=== PATIENT | male | born 2005 | race American Indian/Alaskan Native ===

== ENCOUNTER 2023-06-19 09:58 | Emergency (ER) | payer OTHER, SELFPAY ==
[2023-06-19 09:59] VITALS: BP 129/85; PULSE 77; RESP 16; TEMP 36.2; O2SAT 97; BMI 26.6
[2023-06-19 10:48] LABS: Absolute Lymphocyte Count 1.03 X10^3/uL (0.83-4.51); Absolute Neutrophil Count 5.5 X10^3/uL (2.0-7.7); Basophil# 0.05 X10^3/uL; Basophil% 0.7 % (0-1); Eosinophil# 0.03 X10^3/uL; Eosinophils% 0.4 % (0-5); Hemoglobin 13.7 g/dL (13.0-16.5); Lymphocyte # 1.03 X10^3/ul (0.83-4.51); Mean Corp Hgb Conc 32.6 g/dL (32-36); Mean Corpuscular Volume 85.7 fL (80-94); Mean Platelet Vol. 8.8 fl (6.2-12.0); Monocyte# 0.68 X10^3/uL; Monocyte% 9.3 % (0-10); NRBC Flagged by Analyzer 0 % (0-5); Neutrophil # 5.54 X10^3/uL (2.7-7.7); Neutrophil % 75.5 % (47-70); Platelet Count 320 K/mm3 (150-450); RBC Distribution Width CV 13.6 % (11.6-14.6); RBC Distribution Width SD 42.5 fl (35.1-43.9); White Blood Count 7.3 K/mm3 (4.4-11.0)
[2023-06-19 11:04] LABS: Anion Gap 5 (5-15); BUN 14 mg/dL (7-18); BUN/Creat Ratio 16.8 RATIO (10-20); Calcium,Total 9.5 mg/dL (8.5-10.1); Chloride 108 mmol/L (98-107); Creatinine, Serum 0.83 mg/dL (0.70-1.30); EST Glomerular Filtration Rate 125 mL/min (>60); Est Glom Filt Rate - Afr Amer 152 mL/min (>60); Estimated Creatinine Clearance 152.46 ml/min; Glucose 116 mg/dL (74-106); Potassium 3.4 mmol/L (3.5-5.1); Sodium Level 138 mmol/L (136-145)
[2023-06-19 11:15] LABS: Amphetamine Urine VISTA NEGATIVE (<1000 ng/mL); Barbiturate Urine VISTA NEGATIVE (< 200 ng/mL); Benzodiazepine Urine VISTA NEGATIVE (< 200 ng/mL); Cocaine Urine VISTA NEGATIVE (< 300 ng/mL); Ecstacy Urine VISTA NEGATIVE (< 500 ng/mL); Methadone Urine VISTA NEGATIVE (< 300 ng/mL); PCP Urine VISTA NEGATIVE (< 25 ng/mL); THC Urine VISTA NEGATIVE (< 50 ng/mL); Vista UDS pH Range 7
[2023-06-19 11:29] LABS: Alcohol, Blood (Medical)-Serum < 3.0 mg/dL
--- NOTE | 2023-06-19 11:41 | EX.ED.VIS.PS ---
HPI HPI - Psych History of Present Illness Chief Complaint: Suicidal Detail of Chief Complaint: Depression with suicidal thoughts. Informant: patient Onset/Context/Timing Onset: Weeks Context: Gradual Onset Timing: Continuous Current Severity: Moderate Maximum Severity: Moderate Associated Symptoms Associated Symptoms - Psych: Positive for Depressed and Suicidal Thoughts; Negative for Pressured Speech, Threatening, Confusion, Paranoia, Visual Hallucinations or Auditory Hallucinations Specific plan (suicidal thought): No specific plan at this time that I am aware of nor that he admits to. Narrative Narrative: 17-year-old male [employer]. Patient is from [facility] he has no family members anywhere near this area. States been increasingly more depressed over the last week. He denies any attempted suicide but has had thoughts. He has [facility]. They have having talking to counselors via phone. He states is only feel like he is getting worse. 3 years ago he did attempt an overdose at home. But he had no medical evaluation at that time. He denies any recent attempts. He is currently on Prozac which she started 2 weeks ago prior to that he was on Zoloft which has been stopped. Prior similar symptoms: Yes Recent Illness/Hospitalization: No PFSH PFSH Medical History Anxiety Borderline personality disorder Depression Migraines Home Medications fluoxetine 20 mg capsule (Prozac) 20 mg PO DAILY 06/19/23 [History Last Taken Unknown] lamotrigine 25 mg tablet (Lamictal) 25 mg PO DAILY 06/19/23 [History Last Taken Unknown] propranolol PO DAILY 06/19/23 [History Last Taken Unknown] Allergy/AdvReac Type Severity Reaction Status Date / Time No Known Allergies Allergy Verified 06/19/23 11:06 Social History Smoking Status: Unknown if ever smoked ROS ROS ED ROS Narrative Denies recent illness. Review of Systems ROS Unobtainable: Denies due to encephalopathy Constitutional Constitutional ED: Denies chills or fever(s) Eyes Eyes: Denies blurry vision ENT ENT ED: Denies ear pain Cardiovascular Cardiovascular: Denies chest pain Respiratory/Chest Respiratory/Chest: Denies cough or dyspnea Gastrointestinal Gastrointestinal: Denies abdominal pain Genitourinary Genitourinary ED: Denies dysuria Musculoskeletal Musculoskeletal: Denies arthralgias Integumentary Denies abscess Psychiatric Psychiatric: Reports anxiety, depression and suicidal thoughts Endocrine Endocrinology: Denies polydipsia Hematologic/Lymphatic Hematologic/Lymphatic: Denies easy bleeding Allergic/Immunologic Allergic/Immunologic ED: Denies mouth swelling or tongue swelling EXAM Physical Exam Narrative Exam Narrative: Well-appearing 17-year-old male. Vital signs stable afebrile. HEENT exam normal. No trauma. Neck nontender no trauma. Lungs clear to auscultation bilaterally. Heart regular rhythm rate about 75 no murmur. Chest wall nontender. Abdomen soft nontender. Moving all 4 extremities. Calves are nontender that edema or cords. There is no lacerations to his upper or lower extremities or any trauma. Neurologically is awake and alert. Answering questions following commands. He is calm and collected. He is making good eye contact. No focal motor deficits. No smell of alcohol. No signs of toxidrome. Const Vital Signs: 06/19/23 09:59 06/19/23 12:54 Temperature 97.1 F L Temperature Source Temporal Pulse Rate 77 79 Respiratory Rate 16 18 Blood Pressure 129/85 H 155/78 H Blood Pressure Mean 99 103 Pulse Ox 97 97 Oxygen Delivery Method Room Air Room Air Positive well nourished and well developed; Negative for cachectic, contractures or unkempt General Appearance ED: well developed and NAD; Negative for unkempt, cachectic, contractures or pallor Nutritional Appearance: Negative for cachectic HEENT Reports moist mucous membranes normocephalic and atraumatic; Negative for trauma or tenderness Eyes PERRL and EOMs intact bilaterally General Eye ED: Negative for pale conjunctiva or scleral icterus Neck no lymphadenopathy, supple and no JVD General: Negative for tenderness Resp normal respiratory effort and clear to auscultation bilaterally Effort and Inspection: Negative for retractions Auscultation: Negative for rales, rhonchi or wheezes Cardio S1 normal heart sound, S2 normal heart sound and no murmurs Rate: regular rate Rhythm: regular rhythm GI non-tender, non-distended and no masses Inspection: Negative for abdominal distention Auscultation: normoactive bowel sounds Palpation: soft; Negative for tender or guarding Back/Spine no CVA tenderness General Back: Negative for CVA tenderness Cervical Spine: Negative for cervical spine tenderness Thoracic Spine / Upper Back: Negative for thoracic spinal tenderness Lumbar Spine / Lower Back: Negative for lumbar spinal tenderness Coccyx: Negative for other Extremity normal to inspection General Extremety ED: Negative for edema or tenderness General Extremity: Negative for edema Neuro oriented x3, CN's II-XII intact bilaterally and no sensory deficits noted Sensorium / Orientation: alert, oriented to person, oriented to place and oriented to time; Negative for orientation impaired, confused, lethargic or stuporous Motor Exam: strength 5/5 throughout Psych cooperative, speech normal, activity/motor behavior normal, denies hallucinations and denies homicidal ideation; Negative for denies suicidal ideation Psych Narrative: 17-year-old emotionally depressed male. However he does make eye contact. He does seem to be forthcoming with information. Appearance: grossly normal; Negative for unkempt Attitude: calm, engaged, withdrawn, No uncooperative, No evasive, No aggressive and No hostile Activity / Motor Behavior: appropriate eye contact Speech: normal speech Mood & Affect: depressed Thought Process: normal thought process Thought Content: suicidality Attention / Concentration: attention grossly intact Memory / Cognition: memory grossly intact Insight: insight good Judgement: judgement good Skin General Skin Exam: Negative for jaundice or pallor Lesions: no lesions Rashes: no rashes Trauma: Negative for abrasion Wounds: Negative for amputation or wounds noted MDM MDM MDM Narrative Medical decision making narrative: 17-year-old [facility] with depression and suicidal thoughts. He is medically cleared. His exam is benign. His labs are unremarkable. He will be a crisis evaluation to determine if he needs to go to a psychiatric facility or if he can be safety plan back to the [facility]. Crisis evaluated the patient feels that he needs psychiatric admission is working on that. History & Record Review Discussion w/independent historian: Patient Lab Data Attestation: I reviewed the patient's lab results. Lab results narrative: CBC normal. Chemistries normal. Glucose 116. Tox screen negative. Alcohol negative. Labs: Laboratory Results - last 24 hr 06/19/23 10:37 WBC 7.3 RBC 4.90 Hgb 13.7 Hct 42.0 MCV 85.7 MCH 28.0 MCHC 32.6 RDW Std Deviation 42.5 RDW Coeff of Radha 13.6 Plt Count 320 MPV 8.8 Immature Gran % (Auto) 0.100 Neut % (Auto) 75.5 H Lymph % (Auto) 14.0 L [place] % (Auto) 9.3 Eos % (Auto) 0.4 Baso % (Auto) 0.7 Absolute Neuts (auto) 5.5 Absolute Lymphs (auto) 1.03 Nucleated RBC % 0 Sodium 138 Potassium 3.4 L Chloride 108 H Carbon Dioxide 25.0 Anion Gap 5 BUN 14 Creatinine 0.83 Estim Creat Clear Calc 152.46 Est GFR (MDRD) Af Amer 152 Est GFR (MDRD) Non-Af 125 BUN/Creatinine Ratio 16.8 Glucose 116 H Calcium 9.5 Urine Opiates Screen NEGATIVE Urine Methadone Screen NEGATIVE Ur Barbiturates Screen NEGATIVE Ur Phencyclidine Scrn NEGATIVE Ur Amphetamines Screen NEGATIVE MDMA (Ecstasy) Screen NEGATIVE U Benzodiazepines Scrn NEGATIVE Urine Cocaine Screen NEGATIVE U Cannabinoids Screen NEGATIVE Ur Drug Screen Comment Ethyl Alcohol < 3.0 Rhythm Strip Rhythm Strip: Sinus Rhythm Rate: 67 Ectopy: None EKG Initial EKG: Attestation: I personally reviewed and interpreted this EKG as follows: Interpretation: Sinus Rhythm and No Acute Injury Pattern Comments: Normal sinus rhythm rate of 67. Discharge Plan Triage Chief Complaint: Suicidal ED Provider: Rikki Rivera Dx/Rx/DC Orders Clinical Impression: Suicidal thoughts, Depression Prescriptions: No Action fluoxetine [Prozac] 20 mg capsule 20 mg PO DAILY propranolol PO DAILY lamotrigine [Lamictal] 25 mg tablet 25 mg PO DAILY Primary Care Provider: Care Physician,No Primary Referrals: Care Physician,No Primary [Primary Care Provider] - Disposition Disposition: Psychiatric Hospital or Unit
--- NOTE | 2023-06-19 12:45 | EKG12_ITS ---
Test Reason : Blood Pressure : / mmHG Vent. Rate : 067 BPM Atrial Rate : 067 BPM P-R Int : 162 ms QRS Dur : 090 ms QT Int : 380 ms P-R-T Axes : 064 062 040 degrees QTc Int : 401 ms Normal sinus rhythm Normal ECG Confirmed by ADELAIDE SANDOVAL, RICK ([id number]), tape editor KARI SANDERS ([id number]) on 06/22/2023 9:36:03 AM Referred By: Confirmed By:RICK BRYSON MD
[2023-06-19 12:54] VITALS: BP 155/78; PULSE 79; RESP 18; O2SAT 97
--- NOTE | 2023-06-19 17:20 | ED.RN ---
[facility] CALLED TO DECLINE PTS REFERRAL DUE TO LACKING ACTIVE INSURANCE.
[2023-06-19 18:00] VITALS: BP 122/78; PULSE 72; RESP 16; O2SAT 100
--- NOTE | 2023-06-19 18:04 | ED.RN ---
[facility]IN [facility] CALLED, STATED PT HAS BEEN REFERRED TO [facility]. PT WAS DECLINED FROM [facility] DUE TO INACTIVE INSURANCE. [facility] IS AWARE OF INSURANCE ISSUE.
--- NOTE | 2023-06-19 18:12 | ED.RN ---
[facility] CALLED TO DECLINE PT DUE TO INACTIVE INSURANCE.
--- NOTE | 2023-06-19 18:47 | ED.RN ---
PER CRISIS, PT INSURANCE INFORMATION HAS BEEN OBTAINED FROM [facility]. REPORTS THAT THE FACILITIES WHICH THE PATIENT HAS BEEN REFERRED TO WILL BE CONTACTED WITH UPDATED INFORMATION FOR POTENTIAL PLACEMENT.
[2023-06-19] MEDS: FLUoxetine 20 MG Capsule PO (20:39)
[2023-06-19 21:40] VITALS: BP 126/77; PULSE 89; RESP 16; TEMP 36.7; O2SAT 97
[2023-06-20 04:00] VITALS: PULSE 76; RESP 16; O2SAT 97
[2023-06-20 05:55] VITALS: BP 118/75; PULSE 65; RESP 16; TEMP 36.2; O2SAT 98
[2023-06-20 06:55] LABS: AST(SGOT) 15 U/L (15-37); Alanine Aminotransfer ALT/SGPT 19 U/L (16-61); Albumin, Serum 4.3 g/dL (3.2-5.0); Alkaline Phosphatase 71 U/L (45-117); Bilirubin, Direct 0.25 mg/dL (0.00-0.30); Globulin 3.9 g/dL (2.2-4.2); Protein, Total 8.2 g/dL (6.4-8.2)
[2023-06-20 09:34] VITALS: BP 124/66; PULSE 72; RESP 15; O2SAT 99
[2023-06-20] MEDS: lamoTRIgine 25 MG Tablet PO (16:56)
[2023-06-20 17:00] VITALS: BP 120/74; PULSE 76; RESP 12; O2SAT 99
[2023-06-20] MEDS: FLUoxetine 20 MG Capsule PO (21:31)
[2023-06-20] MEDS: Propranolol 10 MG Tablet 20 MG PO (21:31)
[2023-06-20 21:35] VITALS: BP 130/88; PULSE 88; RESP 18; O2SAT 97
[2023-06-21 01:00] VITALS: BP 129/84; PULSE 72; RESP 14; TEMP 36.7; O2SAT 100
[2023-06-21 05:23] VITALS: RESP 15
--- NOTE | 2023-06-21 05:30 | ED.RN ---
Addendum entered by Carol High 06/22/23 04:00: Insurance is not able to be reran until Thursday. Original Note: Per Amy at the counseling center, insurance is reporting ineligible. [facility] is reporting pt does have insurance. Per Amy pt insurance needs contacted/reran or pt will need to go to [facility]. [facility] placement would be at least after Thursday.
[2023-06-21] MEDS: Propranolol 10 MG Tablet 20 MG PO (12:22)
[2023-06-21] MEDS: lamoTRIgine 25 MG Tablet PO (12:22)
[2023-06-21 13:00] VITALS: BP 132/76; PULSE 89; RESP 16; O2SAT 99
[2023-06-21 17:00] VITALS: BP 124/76; PULSE 89; RESP 16; O2SAT 99
--- NOTE | 2023-06-21 19:38 | ED.RN ---
Seda at [facility] requested EKG, COVID, and lab results. Faxed over to # [phone].
[2023-06-21 19:42] VITALS: BP 120/68; PULSE 82; RESP 16; TEMP 36.3; O2SAT 96
[2023-06-21] MEDS: FLUoxetine 20 MG Capsule PO (20:47)
--- NOTE | 2023-06-21 21:05 | ED.RN ---
Sitter remains at the bedside,pt cooperative.
[2023-06-21 23:08] VITALS: RESP 18
[2023-06-22 03:26] VITALS: BP 118/60; PULSE 72; RESP 18
[2023-06-22 08:17] VITALS: RESP 16
--- NOTE | 2023-06-22 09:05 | RAD_ITS ---
STUDY: X-RAY CHEST REASON FOR EXAM: Male, 17 years old. Cough TECHNIQUE: Single AP portable view of the chest. COMPARISON: None. FINDINGS: The lungs are clear and expanded. There is no demonstrated pleural abnormality. Normal size heart. Normal mediastinum and joann. Normal visualized pulmonary arteries. Normal visualized aortic arch and descending thoracic aorta. Normal visualized thoracic spine. Normal visualized ribs, clavicles, and shoulders. There is no demonstrated abnormality of the visualized soft tissue structures of the upper abdomen. RAD/Chest 1 View (Portable) IMPRESSION: Normal x-ray examination of the chest. Electronically Signed: Raúl Cavanaugh MD at 9:38 EST ,
--- NOTE | 2023-06-22 09:47 | NURSING ---
FAXED RAD RESULTS TO [facility]
[2023-06-22 10:09] VITALS: BP 117/75; PULSE 87; RESP 16; O2SAT 100
--- NOTE | 2023-06-22 10:16 | ED.RN ---
THIS RN CONTACTED CRISIS TO FOLLOW UP WITH PATIENT PLAN OF CARE. THIS RN REQUESTING UPDATED PLAN OF CARE NOTES FROM CRISIS AND TIME FOR NEXT RE-ASSESSMENT. PER SE FROM CRISIS SHE WILL RETURN PHONE CALL SOON SHE NEEDS TO REVIEW THE PREVIOUS NOTES.
--- NOTE | 2023-06-22 11:17 | ED.RN ---
THIS RN CONTACTED [facility]IS[facility] TO REPORT THAT THE FAX WITH PT ASSESSMENT UPDATE INFORMATION HAS NOT YET BEEN RECEIVED. PER CRISIS THEY ARE EXPERIENCING TECHNICAL DIFFICULTIES WITH THE COMPUTER SYSTEM AND THAT SHE IS TRYING AGAIN TO FAX THE INFORMATION. REPORTS THAT SE WILL BE UP TO EVALUATE THE PATIENT SHORTLY.
--- NOTE | 2023-06-22 11:27 | CM.ED ---
Social Work SW received call from [facility] [employer] [employer] regarding patient's insurance. COW reports patient does have [employer] [place] insurance and is eligible/active. JAMEY questioned patient status and insurance concerns. NAVEED notified them that SW has not been involved in this process and that crisis is handling patient placement. [facility] reports they have placed patients with this insurance in the past. SW informed crisis would be notified and SW will look into insurance concerns. JAMEY provided Dianne Samuel as contact [phone] for assistance. NAVEED spoke with ED registration who was unable to verify insurance online but insurance company was called and confirmed patient has [place] [employer] student insurance. Insurance could not provide a print out of coverage/confirmation. However, insurance can be confirmed through calling company at [phone]. NAVEED notified Kimberli from crisis of this number/confirmation of insurance received. Georgiana Vega CERTIFIED WELDER, HISTOPATHOLOGY TECHNICIAN
[2023-06-22] MEDS: lamoTRIgine 25 MG Tablet PO (11:28)
[2023-06-22] MEDS: Propranolol 10 MG Tablet 20 MG PO (11:28)
--- NOTE | 2023-06-22 12:06 | NURSING ---
CRISIS IN ROOM
--- NOTE | 2023-06-22 12:47 | ED.RN ---
JENNY BALES BILINGUAL OPERATOR PT IS REFERRED TO [facility]. REPORTS HIS INSURANCE HAS BEEN VERIFIED AND CORRECTED.
--- NOTE | 2023-06-22 14:50 | NURSING ---
[facility] N TO N [phone]
--- NOTE | 2023-06-22 15:03 | NURSING ---
CALLED [facility], ETA IS 2 TO 3 HRS
--- NOTE | 2023-06-22 15:08 | ED.RN ---
THIS RN CALLED REPORT [facility]
[2023-06-22 17:11] VITALS: BP 127/89; PULSE 75; RESP 16; TEMP 36.9; O2SAT 98
== END 2023-06-22 17:47 ==
PROVIDERS: Emergency Medicine; Emergency Provider Emergency Medicine; Visit Provider Emergency Medicine
DX: F32.A Depression, unspecified (principal); R45.851 Suicidal ideations; Z79.899 Other long term (current) drug therapy
CPT/HCPCS: 36415; 71045; 80048; 80076; 80307; 80320; 85025; 87426; 93005; 99285; G0480

== ENCOUNTER 2024-06-02 01:15 | Emergency (ER) | payer OTHER, SELFPAY ==
[2024-06-02 01:15] VITALS: BP 150/93; PULSE 107; RESP 17; TEMP 36.8; O2SAT 98; BMI 28.2
--- NOTE | 2024-06-02 01:34 | EDS_ITS ---
HPI HPI - Psych History of Present Illness Chief Complaint: Mental Health Informant: patient Onset/Context/Timing Onset: Days Context: Gradual Onset Timing: Continuous Current Severity: Mild Maximum Severity: Mild Associated Symptoms Associated Symptoms - Psych: Negative for Suicidal Thoughts Specific plan (suicidal thought): No plan. No attempt. 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 History of bipolar disorder. Recently his medication prescription changed. The new prescription was around $400. They had to get a different prescription so he could afford to get it filled. He restarted his medications a day or so ago. He was off his meds for 3 to 5 days. Today was found downtown, wandering. There was inclement weather that cold and he was dressed inappropriately. He was brought in by police and pink slipped. He denies being suicidal or homicidal. Was admitted to a mental health hospital about a year ago. No attempt at that time just thoughts. Prior similar symptoms: Yes Recent Illness/Hospitalization: No PFSH PFSH Medical History (Updated 06/02/24 @ 02:[address] Rikki Rivera MD) Bipolar disorder Migraines Borderline personality disorder Depression Anxiety Home Medications ?Medication ?Instructions ?Recorded ?Last Taken ?Type propranolol 20 mg tablet 20 mg PO Q12H headache 06/20 Unknown History estradiol 1 mg tablet 1 mg PO BID 06/02/24 Unknown History lamotrigine 200 mg tablet 400 mg PO QHS 06/02/24 Unkno wn History quetiapine 50 mg tablet 50 mg PO QHS 06/02/24 Unknow n History spironolactone 50 mg tablet 50 mg PO BID 06/02/24 Unkn own History Allergy/AdvReac Type Severity Reaction Status Date / Time No Known Allergies Allergy Verified 06/02/24 01:16 Social History Smoking Status: Current every day smoker tobacco type: e-cigarettes ROS ROS ED ROS Narrative Denies recent illness. Constitutional Constitutional ED: Denies fever(s) Eyes Eyes: Denies blurry vision ENT ENT ED: Denies ear pain Cardiovascular Cardiovascular: Denies chest pain Respiratory/Chest Respiratory/Chest: Denies cough Gastrointestinal Gastrointestinal: Denies abdominal pain Genitourinary Genitourinary ED: Denies dysuria Musculoskeletal Musculoskeletal: Denies arthralgias Integumentary Denies abscess Neurologic Neurologic: Denies headache(s) Psychiatric Psychiatric: Denies anxiety, suicidal ideation or suicidal thoughts Endocrine Endocrinology: Denies polydipsia Hematologic/Lymphatic Hematologic/Lymphatic: Denies easy bleeding Allergic/Immunologic Allergic/Immunologic ED: Denies mouth swelling EXAM Physical Exam Narrative Exam Narrative: Well-appearing 18-year-old male. Vital signs are stable afebrile. He does not look septic toxic. I do not smell alcohol. There is no signs of a toxidrome. He is calm and cooperative. He is neither combative nor physically aggressive. H EENT exam unremarkable. Pupils round reactive light. No trauma. Moist mucous membranes. Neck nontender no trauma. Lungs clear to auscultation bilaterally. Heart regular rhythm rate about 100 no murmur. Abdomen soft nontender. Moving all 4 extremities. No signs of trauma. No lacerations. No track araya. No rashes. Back nontender. Neurologically is awake and alert. Answering questions following commands. Appropriate eye contact. Const Vital Signs: 06/02/24 01:15 06/02/24 02:12 Temperature 98.3 F Temperature Source Oral Pulse Rate 107 H 109 H Respiratory Rate 17 16 Blood Pressure 150/93 H 135/84 H Blood Pressure Mean 112 101 Pulse Ox 98 99 Oxygen Delivery Method Room Air Room Air Positive well nourished and well developed; Negative for cachectic, contractures or unkempt General Appearance ED: well developed and NAD; Negative for unkempt, cachectic, contractures or pallor Nutritional Appearance: Negative for cachectic HEENT Reports moist mucous membranes normocephalic and atraumatic Eyes PERRL and EOMs intact bilaterally Neck no lymphadenopathy, supple and no JVD Resp normal respiratory effort and clear to auscultation bilaterally Cardio S1 normal heart sound, S2 normal heart sound and no murmurs GI non-tender, non-distended and no masses Palpation: soft; Negative for tender or guarding Back/Spine no CVA tenderness Extremity normal to inspection General Extremety ED: Negative for edema or tenderness General Extremity: Negative for edema Neuro oriented x3, CN's II-XII intact bilaterally and no sensory deficits noted Sensorium / Orientation: alert, oriented to person, oriented to place and oriented to time; Negative for orientation impaired, confused, lethargic or stuporous Motor Exam: strength 5/5 throughout Psych mental status grossly normal, thought process normal, cooperative, affect normal, speech normal, activity/motor behavior normal, denies hallucinations, denies homicidal ideation and denies suicidal ideation Appearance: grossly normal; Negative for unkempt Attitude: calm and engaged Activity / Motor Behavior: appropriate eye contact Speech: normal speech Mood & Affect: euthymic mood and anxious Thought Process: normal thought process Thought Content: normal thought content Attention / Concentration: attention grossly intact Memory / Cognition: memory grossly intact Insight: insight good Judgement: judgement good Skin General Skin Exam: Negative for jaundice or pallor Lesions: no lesions Rashes: no rashes Trauma: Negative for abrasion MDM MDM MDM Narrative Medical decision making narrative: 18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 Brought in by police. Exam benign. Medically cleared. Awaiting crisis evaluation. Repeat exam patient is doing well at 3:45 AM. Crisis came and evaluated the patient. There very comfortable as of my with him being discharged back to school. I discussed that with the patient he feels comfortable going back to school. He has his medications now which she can take. He will follow-up with the counseling center. He knows to return if he is feeling worse or suicidal. History & Record Review Discussion w/independent historian: Patient Lab Data Attestation: I reviewed the patient's lab results. Lab results narrative: CBC normal. White count 8. H&H 13 and 40. Platelets 356. Electrolytes show potassium of 3.3. Gap 9. Normal BUN of 15 and creatinine 0.8. Glucose 103. Alcohol 5. Tox screen negative. Labs: Laboratory Results - last 24 hr 06/02/24 06/02/24 01:30 01:44 WBC 8.7 RBC 4.75 Hgb 13.5 Hct 40.9 MCV 86.1 MCH 28.4 MCHC 33.0 RDW Std Deviation 45.6 H RDW Coeff of Radha 14.5 Plt Count 356 MPV 9.0 Immature Gran % (Auto) 0.200 Neut % (Auto) 66.5 Lymph % (Auto) 22.9 [place] % (Auto) 7.8 Eos % (Auto) 1.8 Baso % (Auto) 0.8 Absolute Neuts (auto) 5.8 Absolute Lymphs (auto) 2.00 Nucleated RBC % 0 Sodium 139 Potassium 3.3 L Chloride 106 Carbon Dioxide 25.0 Anion Gap 9 BUN 15 Creatinine 0.88 Estim Creat Clear Calc 155.04 Est GFR (MDRD) Af Amer 141 Est GFR (MDRD) Non-Af 116 BUN/Creatinine Ratio 17.0 Glucose 103 Calcium 10.6 H Urine Opiates Screen NEGATIVE Urine Methadone Screen NEGATIVE Ur Barbiturates Screen NEGATIVE Ur Phencyclidine Scrn NEGATIVE Ur Amphetamines Screen NEGATIVE MDMA (Ecstasy) Screen NEGATIVE U Benzodiazepines Scrn NEGATIVE Urine Cocaine Screen NEGATIVE U Cannabinoids Screen NEGATIVE Ur Drug Screen Comment Ethyl Alcohol 5.0 Discharge Plan Triage Chief Complaint: Mental Health ED Provider: Rikki Rivera Dx/Rx/DC Orders Clinical Impression: Bipolar 1 disorder Prescriptions: No Action propranolol 20 mg tablet 20 mg PO Q12H estradiol 1 mg tablet 1 mg PO BID spironolactone 50 mg tablet 50 mg PO BID lamotrigine 200 mg tablet 400 mg PO QHS quetiapine 50 mg tablet 50 mg PO QHS Primary Care Provider: Care Physician,No Primary Referrals: Care Physician,No Primary [Primary Care Provider] - Print Language: Stateless
[2024-06-02 01:44] LABS: Absolute Neutrophil Count 5.8 X10^3/uL (2.0-7.7); Basophil# 0.07 X10^3/uL; Basophil% 0.8 % (0-1); Eosinophil# 0.16 X10^3/uL; Eosinophils% 1.8 % (0-5); Hematocrit 40.9 % (40-54); Hemoglobin 13.5 g/dL (13.0-16.5); Lymphocyte % 22.9 % (19-41); Mean Corpuscular Hgb 28.4 pg (27.0-32.0); Mean Corpuscular Volume 86.1 fL (80-94); Monocyte# 0.68 X10^3/uL; Monocyte% 7.8 % (0-10); NRBC Flagged by Analyzer 0 % (0-5); Neutrophil % 66.5 % (47-70); Platelet Count 356 K/mm3 (150-450); RBC Distribution Width CV 14.5 % (11.6-14.6); RBC Distribution Width SD 45.6 fl (35.1-43.9); Red Blood Count 4.75 M/mm3 (4.6-6.2); White Blood Count 8.7 K/mm3 (4.4-11.0)
[2024-06-02 02:03] LABS: Anion Gap 9 (5-15); BUN 15 mg/dL (7-18); Calcium,Total 10.6 mg/dL (8.5-10.1); Chloride 106 mmol/L (98-107); Creatinine, Serum 0.88 mg/dL (0.70-1.30); EST Glomerular Filtration Rate 116 mL/min (>60); Est Glom Filt Rate - Afr Amer 141 mL/min (>60); Estimated Creatinine Clearance 155.04 ml/min; Glucose 103 mg/dL (74-106); Potassium 3.3 mmol/L (3.5-5.1); Sodium Level 139 mmol/L (136-145)
--- NOTE | 2024-06-02 02:11 | ED.RN ---
no sitter needed at this time per dr. bowles
[2024-06-02 02:12] VITALS: BP 135/84; PULSE 109; RESP 16; O2SAT 99
--- NOTE | 2024-06-02 02:22 | ED.RN ---
CALLED CRISIS, FAXED DR NOTE, DEMO SHEET AND ALCOHOL . WILL SEND REST WHEN RESULTS
[2024-06-02 02:27] LABS: Amphetamine Urine NEGATIVE (<1000 ng/mL); Barbiturate Urine VISTA NEGATIVE (< 200 ng/mL); Benzodiazepine Urine VISTA NEGATIVE (< 200 ng/mL); Cocaine Urine VISTA NEGATIVE (< 300 ng/mL); Ecstacy Urine VISTA NEGATIVE (< 500 ng/mL); Methadone Urine VISTA NEGATIVE (< 300 ng/mL); PCP Urine VISTA NEGATIVE (< 25 ng/mL); THC Urine VISTA NEGATIVE (< 50 ng/mL); Vista UDS pH Range 5
[2024-06-02 03:47] VITALS: BP 129/81; PULSE 107; RESP 16; TEMP 36.8; O2SAT 99
== END 2024-06-02 04:03 | disposition home or self-care (01) ==
PROVIDERS: Emergency Provider Emergency Medicine; Visit Provider Emergency Medicine
DX: F31.9 Bipolar disorder, unspecified (principal); Z79.899 Other long term (current) drug therapy; F17.290 Nicotine dependence, other tobacco product, uncomplicated
CPT/HCPCS: 36415; 80048; 80307; 82077; 85025; 99284